=== PATIENT | male | born 1995 | race American Indian/Alaskan Native ===

== ENCOUNTER 2018-03-23 08:46 | Emergency (ER) | payer MEDICAID ==
[2018-03-23 09:24] VITALS: RESP 16; TEMP 98.8; O2SAT 98
--- NOTE | 2018-03-23 09:46 | C.PDOC ---
History Of Present Illness 22 year old male presents to the ED c/o recurrent penile swelling, difficulty moving foreskin for the past 6 hours. Patient reports this is the second episode , first episode occurred this week but spontaneously resolved. Patient states symptoms started when he was in the shower. Patient denies penile itching, rash , penile discharge, trauma, dysuria, hematuria, back pain. RECUR PENILE SWELLING, DIFFICULTY MOVING FORESKIN X 6 HRS. PS THIS IS 2ND EPISODE, 1ST EPISODE THIS WEEK BUT SPONT RESOLVED. ONSET WHILE IN SHOWER. NO PENILE ITCH, RASH, DC, TRAUMA. EXAM MILD DIST +PARAPHIMOSIS, EDEMA BELOW GLANS. NO RASH, DC. ATRAUM REMAINDER NEG Time Seen by Provider: 03/23/18 09:33 Chief Complaint (Nursing): Male Genitourinary History Per: Patient History/Exam Limitations: no limitations Onset/Duration Of Symptoms: Hrs (6) Current Symptoms Are (Timing): Still Present Quality Of Discomfort: "Pain" Associated Symptoms: Urinary Symptoms. denies: Nausea, Vomiting, Diarrhea Alleviating Factors: denies: None Recent travel outside of the [place]: No Additional History Per: Patient Past Medical History Reviewed: Historical Data, Nursing Documentation, Vital Signs Vital Signs: Last Vital Signs Temp 98.8 F 03/23/18 09:17 Pulse 88 03/23/18 09:17 Resp 16 03/23/18 09:17 BP 128/88 03/23/18 09:17 Pulse Ox 98 03/23/18 13:02 - Medical History PMH: Asthma Surgical History: No Surg Hx Family History: States: Unknown Family Hx - Social History Hx Tobacco Use: No Hx Alcohol Use: No Hx Substance Use: No - Immunization History Hx Tetanus Toxoid Vaccination: No Hx Influenza Vaccination: No Hx Pneumococcal Vaccination: No Review Of Systems Constitutional: Negative for: Fever, Chills Cardiovascular: Negative for: Chest Pain Respiratory: Negative for: Shortness of Breath Gastrointestinal: Negative for: Nausea, Vomiting, Abdominal Pain Genitourinary: Positive for: Penile Pain. Negative for: Dysuria, Hematuria, Scrotal Pain Musculoskeletal: Negative for: Back Pain Neurological: Negative for: Weakness, Numbness Physical Exam - Physical Exam Appears: Non-toxic, In Acute Distress (due to pain) Skin: Normal Color, Warm, Dry Head: Atraumatic, Normacephalic Eye(s): bilateral: Normal Inspection Chest: Symmetrical Cardiovascular: Rhythm Regular Respiratory: Normal Breath Sounds, No Rales, No Rhonchi, No Wheezing Gastrointestinal/Abdominal: Soft, No Tenderness, No Guarding, No Rebound Male Genital: Other (+ paraphimosis, edema below glands. No rash or discharge noted) Extremity: Normal ROM, No Tenderness, No Swelling Neurological/Psych: Oriented x3, Normal Speech Gait: Steady ED Course And Treatment O2 Sat by Pulse Oximetry: 98 (ON RA) Pulse Ox Interpretation: Normal Progress - Re-Evaluation Re-evaluation Note: 03/23/18 09:47 PROCEDURE: CLOSED REDUCTION PARAPHIMOSIS NO IMPROVE S/P ICE PACKS X 15 MINS. 03/23/18 10:08 XYLOCAINE APPLIED W [place] WRAP X 5 MINS. NO IMPROVE W EDEMA, UNABLE TO REDUCE 03/23/18 10:39 D/W DR POLLACK STATES WILL SEE PT IN ER D50 APPLIED 03/23/18 11:59 SP D50 SOLUTION, NO SIG IMPROVE. UNABLE TO REDUCE. 03/23/18 13:18 S/P BLOCK AND REDUCTION BY DR POLLACK - Continuity of Care Discussed pt. case with security and privacy consultant/specialty: Urology Medical Decision Making Medical Decision Making: Plan: * Lidocaine 2% 15 ml PO * Toradol 60 mg IM * Xylocaine 1 ea TOP Disposition Counseled Patient/Family Regarding: Diagnosis, Need For Followup, Rx Given - Disposition Referrals: Desmond Pollack MD [Staff Provider] - Disposition: HOME/ ROUTINE Disposition Time: 13:18 Condition: IMPROVED Forms: General Discharge Instructions, [facility] (Polish), Work Excuse - Clinical Impression Clinical Impression: Paraphimosis - Scribe Statement The provider has reviewed the documentation as recorded by the Scribe Charles Guerrero All medical record entries made by the Scribe were at my direction and personally dictated by me. I have reviewed the chart and agree that the record accurately reflects my personal performance of the history, physical exam, medical decision making, and the department course for this patient. I have also personally directed, reviewed, and agree with the discharge instructions and disposition.
[2018-03-23] MEDS ORDERED: Lidocaine 2% Jelly (Uro-Jet) TOP STA (10:13)
[2018-03-23] MEDS ORDERED: Lidocaine 2% Jelly (Uro-Jet) ONE (10:17)
[2018-03-23] MEDS ORDERED: Dextrose 50% SYRINGE Inj (50 ml) ONE ×2 (10:43→10:57)
[2018-03-23] MEDS ORDERED: Lidocaine 2% w Epi 1:100,000 Inj IJ ONE (12:59)
[2018-03-23 13:28] VITALS: BP 123/81; PULSE 16
--- NOTE | 2018-04-02 07:06 | PROCN ---
Copied To: Desmond Pollack MD Attending MD: Desmond Pollack MD DATE OF PROCEDURE: 03/23/2018 The patient presented to the emergency room with paraphimosis. To reduce this, the patient was given injection of lidocaine with 25-gauge needle to the area of retracted paraphimosis. Once this was accomplished, using Allis clamps at same interval, grab the neck of the penis with gentle removing of the Allis clamps, the foreskin was moved over to scott in good position. There was no injury to the foreskin. The patient tolerated the procedure well, left the OR in good position. Desmond Pollack MD
== END 2018-03-23 13:27 | disposition home or self-care (01) ==
LOC: C.ER 08:46
DX: N47.2 Paraphimosis (principal)
CPT/HCPCS: 96372; 99283; J1885

== ENCOUNTER 2018-11-13 04:11 | Emergency (ER) | payer SELFPAY ==
[2018-11-13] MEDS ORDERED: Tetracaine 0.5% Ophth (OR ONLY) ONE (04:47)
[2018-11-13] MEDS ORDERED: Fluorescein 1 mg Ophthalmic Strip ONE (04:53)
[2018-11-13] MEDS ORDERED: Fluorescein 1 mg Ophthalmic Strip OU ONE (04:54)
--- NOTE | 2018-11-13 05:30 | C.PDOC ---
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 Patient has been unable to opens eyes with photophobia. Denies sensation of foreign body, Hx of foreign body, headache, or dizziness. Time Seen by Provider: 11/13/18 04:27 Chief Complaint (Nursing): Eye Problem History Per: Patient History/Exam Limitations: no limitations Onset/Duration Of Symptoms: Hrs Current Symptoms Are (Timing): Still Present Injury To Eye?: No Wears Contact Lens?: No Associated Symptoms: Pain, Other (Burning sensation, irritation) Past Medical History Reviewed: Historical Data, Nursing Documentation, Vital Signs Vital Signs: Last Vital Signs Temp 98.5 F 11/13/18 04:18 Pulse 69 11/13/18 04:18 Resp 16 11/13/18 04:18 BP 133/81 11/13/18 04:18 Pulse Ox 99 11/13/18 04:18 - Medical History PMH: Asthma Family History: States: Unknown Family Hx - Social History Hx Tobacco Use: No Hx Alcohol Use: No Hx Substance Use: No - Immunization History Hx Tetanus Toxoid Vaccination: No Hx Influenza Vaccination: No Hx Pneumococcal Vaccination: No Review Of Systems Eyes: Positive for: Pain, Other (Irritation) Neurological: Negative for: Headache, Dizziness Physical Exam - Physical Exam Appears: Non-toxic Skin: Normal Color, Warm Head: Atraumatic, Normacephalic Eye(s): bilateral: Other (Tearing unable to open eyes, after tetracaine drops placed patient with mild ciliary injection, 20/25 visual acuity, no corneal abrasion with fluorescein) Neurological/Psych: Oriented x3, Normal Speech ED Course And Treatment O2 Sat by Pulse Oximetry: 99 (room air) Pulse Ox Interpretation: Normal Progress Note: Patient resting comfortably in no acute distress, vitals are stable, Eyes ittigated with saline. Recommended to irrigate eyes at home, avoid exposure to light and sun for at least a day and follow up with eye doctor as needed. Reassessment Condition: Improved Disposition Counseled Patient/Family Regarding: Diagnosis, Need For Followup, Rx Given - Disposition Referrals: Harry Cuadra [Staff Provider] - Disposition: HOME/ ROUTINE Disposition Time: 05:22 Condition: STABLE Additional Instructions: Apply cold compress to eyes Irrigate eyes under cool running water at home ''\ Avoid bright light or sun glare today Follow up with Eye doctor as needed Return to ER if worse Forms: [facility] (Romanian), Work Excuse - Clinical Impression Clinical Impression: Irritation of both eyes - PA / COGNOS REPORT DEVELOPER / Resident Statement MD/DO has reviewed & agrees with the documentation as recorded. - Scribe Statement The provider has reviewed the documentation as recorded by the Scriblew Collazo All medical record entries made by the Meghanaiblew were at my direction and personally dictated by me. I have reviewed the chart and agree that the record accurately reflects my personal performance of the history, physical exam, medical decision making, and the department course for this patient. I have also personally directed, reviewed, and agree with the discharge instructions and disposition.
[2018-11-13 05:37] VITALS: BP 129/82; PULSE 60; RESP 18; TEMP 982
[2018-11-13 06:02] VITALS: O2SAT 99
== END 2018-11-13 05:37 | disposition home or self-care (01) ==
LOC: C.ER 04:11
DX: H57.89 Other specified disorders of eye and adnexa (principal)